=== PATIENT | female | born 1995 | race Caucasian/White ===

== ENCOUNTER 2023-06-06 19:27 | Emergency (ER) | payer OTHER ==
[2023-06-06 19:37] VITALS: BP 123/82; PULSE 96; RESP 18; TEMP 98.8; BMI 21.9
[2023-06-06] MEDS ORDERED: ACETAMINOPHEN 325 MG TABLET (FP) ONE (20:29)
[2023-06-06] MEDS: ACETAMINOPHEN 325 MG TABLET (FP) PO ONE (20:31)
[2023-06-06] MEDS ORDERED: DIPHTH,PERTUSS(ACELL),TET 0.5 ML DISP.SYRIN IM ONE (22:00)
[2023-06-06] MEDS: DIPHTH,PERTUSS(ACELL),TET 0.5 ML DISP.SYRIN IM ONE (22:02)
== END 2023-06-06 22:07 | disposition home or self-care (01) ==
LOC: JERFT 19:27
PROC: 3E0234Z Introduction of Serum, Toxoid and Vaccine into Muscle, Percutaneous Approach (ICD-10-PCS; principal; 2023-06-06)
DX: S00.03XA Contusion of scalp, initial encounter (principal); S00.511A Abrasion of lip, initial encounter; R42 Dizziness and giddiness; Y04.8XXA Assault by other bodily force, initial encounter
CPT/HCPCS: 70450-TC; 90471; 90715; 99284-25

== ENCOUNTER 2023-06-11 04:14 | Emergency (ER) | payer OTHER ==
[2023-06-11 04:20] VITALS: BMI 23.8
[2023-06-11] MEDS ORDERED: ACETAMINOPHEN INJECTION 100 ML IVPB ONE (04:55)
[2023-06-11] MEDS ORDERED: ONDANSETRON 4 MG/2 ML VIAL ONE (04:55)
[2023-06-11] MEDS ORDERED: FAMOTIDINE 20 MG/50 ML IVPB 20 MG/50 ML MG IVPB ONE (04:55)
[2023-06-11] MEDS: SODIUM CHLORIDE 0.9% 500 ML INFUS.BAG IV ONE (05:13)
[2023-06-11] MEDS: ACETAMINOPHEN 1000 MG/100 ML BAG IVPB ONE (05:13)
[2023-06-11] MEDS: ONDANSETRON 4 MG/2 ML VIAL IVPUSH ONE (05:14)
[2023-06-11] MEDS: FAMOTIDINE 20 MG/50 ML IVPB 20 MG/50 ML MG IVPB ONE (05:14)
[2023-06-11 05:38] LABS: BASO % 0.7 % (0-2.0); EOS % 2.2 % (0-4.5); HEMATOCRIT 45.6 % (32.4-45.2); HEMOGLOBIN 15.4 GM/dL (10.7-15.3); LYMPH % 36.2 % (8-40); MCH 32.1 pg (25.7-33.7); MCHC 33.9 g/dl (32.0-36.0); MEAN CELL VOLUME 94.7 fl (80-96); MEAN PLT VOLUME 8.5 fl (7.5-11.1); NEUT % 54.9 % (42.8-82.8); PLATELET COUNT 217 10^3/uL (134-434); RBC 4.82 M/mm3 (3.60-5.2); RDW 13.2 % (11.6-15.6)
[2023-06-11 05:57] LABS: POTASSIUM 3.9 mmol/L (3.5-5.1)
[2023-06-11 06:00] LABS: ALBUMIN 3.3 g/dl (3.4-5.0); BLOOD UREA NITROGEN 7.6 mg/dL (7-18); CALCIUM 8.9 mg/dL (8.5-10.1)
[2023-06-11 06:03] LABS: CREATININE 0.6 mg/dL (0.55-1.3)
[2023-06-11 06:04] LABS: BILIRUBIN,TOTAL 0.3 mg/dL (0.2-1)
[2023-06-11 06:05] LABS: TOT PROT 6.9 g/dl (6.4-8.2)
[2023-06-11 09:25] VITALS: BP 110/72; PULSE 75; RESP 17; TEMP 98.5
== END 2023-06-11 09:25 | disposition home or self-care (01) ==
LOC: JER 04:14
PROC: 3E033GC Introduction of Other Therapeutic Substance into Peripheral Vein, Percutaneous Approach (ICD-10-PCS; principal; 2023-06-11)
PROC: 3E033NZ Introduction of Analgesics, Hypnotics, Sedatives into Peripheral Vein, Percutaneous Approach (ICD-10-PCS; 2023-06-11)
PROC: 3E033GC Introduction of Other Therapeutic Substance into Peripheral Vein, Percutaneous Approach (ICD-10-PCS; 2023-06-11)
DX: R10.11 Right upper quadrant pain (principal); R11.2 Nausea with vomiting, unspecified; K80.50 Calculus of bile duct without cholangitis or cholecystitis without obstruction
CPT/HCPCS: 36415; 76705-TC; 80053; 83690; 84703; 85025; 99284-25; J0131